=== PATIENT | female | born 1955 | race Hispanic/Latino ===

== ENCOUNTER 2024-05-02 13:45 | Observation (INO) | payer MEDICARE, OTHER, SELFPAY ==
[2024-05-02] MEDS: Gabapentin 300 MG CAP PO SCH (19:12)
[2024-05-02 20:08] VITALS: BMI 25.4
[2024-05-02] MEDS: valACYclovir 500 MG TAB PO SCH (20:09)
[2024-05-02] MEDS: Ibuprofen 200 MG TAB PO PRN (20:10)
[2024-05-02] MEDS ORDERED: Ibuprofen 200 MG TAB PO SCH (21:00)
[2024-05-02] MEDS ORDERED: Gabapentin 300 MG CAP PO SCH (21:00)
[2024-05-02] MEDS: Ondansetron ODT 4 MG TAB PO PRN (23:11)
[2024-05-03] MEDS: Acetaminophen 325 MG TAB PO PRN (03:22)
[2024-05-03 05:08] LABS: #Basophils 0.05 10x3/uL (0.0-0.2); %Basophils 0.8 % (0.0-1.0); %Eosinophils 2.5 % (0.0-10.0); %Lymphocytes 30.5 % (21.0-51.0); %Monocytes 11.6 % (0.0-10.0); %Neutrophils 54.4 % (42.0-75.0); Hematocrit 38.8 % (36.0-47.0); Hemoglobin 13.5 g/dL (12.0-16.0); Mean Corpuscular HGB CONC 34.8 g/dL (32.0-36.0); Mean Corpuscular Hemoglobin 31.2 pg (27.0-31.0); Mean Corpuscular Volume 89.6 fL (78.0-98.0); Mean Platelet Volume 11.2 fL (7.4-10.4); Platelet Count 176 10x3/uL (130-400); RBC Distribution Width 12.4 % (11.5-14.5); Red Blood Cell (RBC) Count 4.33 mill/uL (4.20-5.40)
[2024-05-03 05:25] LABS: ALT (SGPT) 13 U/L (8-55); AST (SGOT) 20 U/L (5-34); Albumin 3.8 g/dL (3.4-4.8); Alkaline Phosphatase 92 U/L (40-110); Anion Gap 10 mmol/L (10-20); BUN (Urea Nitrogen) 16 mg/dL (9.8-20.1); Bilirubin, Total 0.5 mg/dL (0.2-1.2); Calc. Creatinine Clearance 61 mL/min (70-130); Calcium 9.1 mg/dL (7.8-10.44); Carbon Dioxide 25 mmol/L (23-31); Chloride 107 mmol/L (98-107); Estimated GFR 94; Globulin 3.1 g/dL (2.4-3.5); Glucose 120 mg/dL (80-115); Potassium 3.8 mmol/L (3.5-5.1); Protein, Total 6.9 g/dL (5.8-8.1); Sodium 138 mmol/L (136-145)
[2024-05-03] MEDS: Gabapentin 300 MG CAP PO SCH (08:36)
[2024-05-03] MEDS: Enoxaparin 40 MG (0.4 mL) SYRINGE SC SCH (08:37)
[2024-05-03 09:03] VITALS: BP 100/64; TEMP 98.2
[2024-05-04] MEDS ORDERED: Gabapentin 300 MG CAP PO SCH (09:00)
[2024-05-05] MEDS ORDERED: FLU (Fluad Triv) TS24-25 (65UP)/MF59C/PF 45 MCG/0.5 ML Syringe IM ONE (09:00)
== END 2024-05-03 11:58 | disposition home or self-care (01) ==
LOC: T4-A 15:33
PROVIDERS: ADMIT Student in an Organized Health Care Education/Training Program; ATTEND Student in an Organized Health Care Education/Training Program
DX: B02.9 Zoster without complications (principal); R11.0 Nausea; E11.9 Type 2 diabetes mellitus without complications; Z90.49 Acquired absence of other specified parts of digestive tract; Z87.59 Personal history of other complications of pregnancy, childbirth and the puerperium; Z79.1 Long term (current) use of non-steroidal anti-inflammatories (NSAID)
CPT/HCPCS: 80053; 85025; 96372; G0378 ×2; J1650; Q0162; 36415